=== PATIENT | male | born 1995 | race Caucasian/White ===

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

== ENCOUNTER 2017-03-13 00:12 | Emergency (ER) | payer BC ==
[2016-12-14 12:14] VITALS: BMI 20.3
[~2017-03-13 00:12] MED LIST changes: +PROTONIX40 MG PO
== END 2017-03-13 01:00 | disposition home or self-care (01) ==
LOC: D.ER 00:12
DX: R10.9 Unspecified abdominal pain (principal); K52.9 Noninfective gastroenteritis and colitis, unspecified; F41.9 Anxiety disorder, unspecified; J45.909 Unspecified asthma, uncomplicated; E87.6 Hypokalemia

== ENCOUNTER 2017-03-14 19:42 | Emergency (ER) | payer BC ==
[2016-12-14 12:14] VITALS: BMI 20.3
[2017-03-14 23:42] LABS: ALBUMIN 4.5 g/dL (3.4-5.0); ALT (SGPT) 76 U/L (10-68); BILIRUBIN - TOTAL 0.84 mg/dL (0.2-1.3); CALC OSMOLALITY 276 mosm/kg (275-300); CALCIUM 9.6 mg/dL (8.5-10.1); CARBON DIOXIDE 28.8 mmol/L (21.0-32.0); CHLORIDE - SERUM 99 mmol/L (98-107); CREATININE - SERUM 0.6 mg/dL (0.6-1.3); GLUCOSE 87 mg/dL (74-106); PROTEIN - SERUM 8.3 g/dL (6.4-8.2); SODIUM 138 mmol/L (136-145); UREA NITROGEN 19 mg/dL (7-18); eGFR NON AFRICAN AMERICAN > 90 mL/min (90-120)
[2017-03-14 23:43] LABS: ALKALINE PHOSPHATASE 59 U/L (46-116)
[2017-03-14 23:46] LABS: BASOPHILS 0.1 % (0-2); EOSINOPHILS 0.1 % (0-7); HEMATOCRIT 48.9 % (42.0-54.0); HEMOGLOBIN 16.8 g/dL (13.5-17.5); IMMATURE GRANULOCYTES 0.2 % (0-5); LYMPHOCYTES 11.6 % (15-50); MCH 29.3 pg (26.0-34.0); MCHC 34.4 g/dL (31.0-37.0); MCV 85.2 fL (80.0-100.0); MEAN PLATELET VOLUME 10.2 fL (7.4-10.4); RBC 5.74 10x6/uL (4.20-6.10); RDW 13.3 % (11.5-14.5); WBC 14.8 10x3/uL (4.8-10.8)
[2017-03-14 23:50] LABS: PLATELET COUNT 330 10x3/uL (130-400)
[2017-03-15 00:15] LABS: POTASSIUM - SERUM 3.7 mmol/L (3.5-5.1)
[2017-03-15 00:40] LABS: APPEARANCE CLEAR (CLEAR); BILIRUBIN 1+ (NEGATIVE); COLOR YELLOW (YELLOW); GLUCOSE NEGATIVE (NEGATIVE); KETONE NEGATIVE (NEGATIVE); LEUKOCYTE ESTERASE NEGATIVE (NEGATIVE); NITRITE NEGATIVE (NEGATIVE); PROTEIN NEGATIVE (NEGATIVE); UROBILINOGEN NORMAL (NORMAL)
[2017-03-15 00:53] LABS: UDS - AMPHET NEGATIVE QUAL (NEGATIVE); UDS - BARB NEGATIVE QUAL (NEGATIVE); UDS - BENZO NEGATIVE QUAL (NEGATIVE); UDS - COCAINE NEGATIVE QUAL (NEGATIVE); UDS - METH NEGATIVE QUAL (NEGATIVE); UDS - OPIATE POSITIVE QUAL (NEGATIVE); UDS - PCP NEGATIVE QUAL (NEGATIVE); UDS - THC POSITIVE QUAL (NEGATIVE)
== END 2017-03-15 01:53 | disposition home or self-care (01) ==
LOC: D.ER 19:42
PROVIDERS: Emergency Medicine
DX: R11.10 Vomiting, unspecified (principal); F12.188 Cannabis abuse with other cannabis-induced disorder; F41.9 Anxiety disorder, unspecified; J45.909 Unspecified asthma, uncomplicated; E87.6 Hypokalemia

== ENCOUNTER 2017-03-17 07:44 | Emergency (ER) | payer BC ==
[2016-12-14 12:14] VITALS: BMI 20.3
[2017-03-17 08:23] LABS: BASOPHILS 0.4 % (0-2); EOSINOPHILS 0.6 % (0-7); HEMOGLOBIN 15.5 g/dL (13.5-17.5); IMMATURE GRANULOCYTES 0.3 % (0-5); LYMPHOCYTES 16.1 % (15-50); MCH 29.4 pg (26.0-34.0); MCHC 34.4 g/dL (31.0-37.0); MCV 85.2 fL (80.0-100.0); MEAN PLATELET VOLUME 9.5 fL (7.4-10.4); MONOCYTES 8.5 % (2-11); NEUTROPHILS 74.1 % (40-80); PLATELET COUNT 319 10x3/uL (130-400); RBC 5.28 10x6/uL (4.20-6.10); RDW 13.2 % (11.5-14.5)
[2017-03-17 08:34] LABS: APPEARANCE HAZY (CLEAR); BILIRUBIN NEGATIVE (NEGATIVE); COLOR DK YELLOW (YELLOW); GLUCOSE NEGATIVE (NEGATIVE); KETONE SMALL mg/dL (NEGATIVE); LEUKOCYTE ESTERASE TRACE (NEGATIVE); NITRITE NEGATIVE (NEGATIVE); PROTEIN TRACE mg/dL (NEGATIVE); UROBILINOGEN NORMAL (NORMAL)
[2017-03-17 08:36] LABS: BACTERIA FEW /hpf (NONE SEEN); EPITHELIAL CELLS RARE /hpf (0-5); MUCUS >1+ /lpf (NONE SEEN); RED CELLS - URINE 0-5 /hpf (0-5); WHITE CELLS - URINE 0-5 /hpf (0-5)
[2017-03-17 08:45] LABS: ALBUMIN 4.2 g/dL (3.4-5.0); ALKALINE PHOSPHATASE 64 U/L (46-116); ALT (SGPT) 50 U/L (10-68); AMYLASE - SERUM 50 U/L (25-115); BILIRUBIN - TOTAL 0.83 mg/dL (0.2-1.3); CALC OSMOLALITY 277 mosm/kg (275-300); CALCIUM 9.8 mg/dL (8.5-10.1); CARBON DIOXIDE 30.9 mmol/L (21.0-32.0); CHLORIDE - SERUM 99 mmol/L (98-107); CREATININE - SERUM 1.1 mg/dL (0.6-1.3); GLUCOSE 98 mg/dL (74-106); LIPASE 148 U/L (73-393); MAGNESIUM - SERUM 2.4 mg/dL (1.8-2.4); POTASSIUM - SERUM 3.2 mmol/L (3.5-5.1); PROTEIN - SERUM 7.3 g/dL (6.4-8.2); SODIUM 139 mmol/L (136-145); UREA NITROGEN 13 mg/dL (7-18); eGFR NON AFRICAN AMERICAN > 90 mL/min (90-120)
== END 2017-03-17 10:55 | disposition home or self-care (01) ==
LOC: D.ER 07:44
PROVIDERS: Emergency Medicine
DX: R11.10 Vomiting, unspecified (principal); R10.9 Unspecified abdominal pain; E87.6 Hypokalemia; F41.9 Anxiety disorder, unspecified; J45.909 Unspecified asthma, uncomplicated; F12.988 Cannabis use, unspecified with other cannabis-induced disorder

== ENCOUNTER 2017-03-19 09:39 | Observation (INO) | payer BC ==
[~2017-03-19] VITALS: Ht 180.3 cm; Wt 80.7 kg
[2017-03-19 10:35] VITALS: BP 151/88; BMI 24.8
--- NOTE | 2017-03-19 10:39 | NUR ---
PT ADMITTED FOR N/V X 1 WEEK. UNABLE TO KEEP LIQUIDS DOWN. HAS BEEN TO THE ER FEW DAYS AGO FOR FLUIDS BUT STATES THIS DID NOT HELP. IV STARTED RIGHT AC X 1 STICK. BLOOD DRAWN AT THAT TIME. MOM AT BEDSIDE. CALL LIGHT IN REACH. KNOWS URINE SPECIMEN NEEDED.
[2017-03-19 10:48] LABS: BASOPHILS 0.3 % (0-2); EOSINOPHILS 0.3 % (0-7); HEMOGLOBIN 14.5 g/dL (13.5-17.5); IMMATURE GRANULOCYTES 0.3 % (0-5); LYMPHOCYTES 13.7 % (15-50); MCH 29.1 pg (26.0-34.0); MCHC 34.5 g/dL (31.0-37.0); MCV 84.2 fL (80.0-100.0); MEAN PLATELET VOLUME 10.1 fL (7.4-10.4); MONOCYTES 7.5 % (2-11); NEUTROPHILS 77.9 % (40-80); PLATELET COUNT 354 10x3/uL (130-400); RBC 4.99 10x6/uL (4.20-6.10); RDW 13.3 % (11.5-14.5); WBC 11.8 10x3/uL (4.8-10.8)
[2017-03-19 11:09] LABS: ALBUMIN 3.8 g/dL (3.4-5.0); ALKALINE PHOSPHATASE 58 U/L (46-116); ALT (SGPT) 40 U/L (10-68); BILIRUBIN - TOTAL 0.71 mg/dL (0.2-1.3); CALC OSMOLALITY 275 mosm/kg (275-300); CALCIUM 9.1 mg/dL (8.5-10.1); CHLORIDE - SERUM 100 mmol/L (98-107); CREATININE - SERUM 1.2 mg/dL (0.6-1.3); GLUCOSE 85 mg/dL (74-106); SODIUM 139 mmol/L (136-145); UREA NITROGEN 11 mg/dL (7-18); eGFR NON AFRICAN AMERICAN 83 mL/min (90-120)
[2017-03-19 12:31] VITALS: BP 111/58
[2017-03-19 14:52] LABS: APPEARANCE HAZY (CLEAR); BILIRUBIN NEGATIVE (NEGATIVE); COLOR YELLOW (YELLOW); GLUCOSE NEGATIVE (NEGATIVE); KETONE MODERATE mg/dL (NEGATIVE); LEUKOCYTE ESTERASE NEGATIVE (NEGATIVE); NITRITE NEGATIVE (NEGATIVE); PROTEIN NEGATIVE (NEGATIVE); UROBILINOGEN NORMAL (NORMAL)
[2017-03-19 15:16] LABS: UDS - AMPHET NEGATIVE QUAL (NEGATIVE); UDS - BARB NEGATIVE QUAL (NEGATIVE); UDS - BENZO NEGATIVE QUAL (NEGATIVE); UDS - COCAINE NEGATIVE QUAL (NEGATIVE); UDS - METH NEGATIVE QUAL (NEGATIVE); UDS - OPIATE NEGATIVE QUAL (NEGATIVE); UDS - PCP NEGATIVE QUAL (NEGATIVE); UDS - THC POSITIVE QUAL (NEGATIVE)
[2017-03-19 15:33] LABS: AMYLASE - SERUM 43 U/L (25-115); LIPASE 115 U/L (73-393)
[2017-03-19 16:13] VITALS: BP 128/68
--- NOTE | 2017-03-19 17:41 | NUR ---
PT HAS HAD NO NAUSEA THIS AFTERNOON. RECENTLY HAD SHOWER AND STATES FEELS BETTER. CONSENTS SIGNED FOR PROCEDURE IN AM. CALL LIGHT IN REACH
[2017-03-19 20:00] VITALS: BP 132/78
--- NOTE | 2017-03-19 20:40 | NUR ---
AWAKE,WATCHING TV QUIETLY. NO COMPLAINTS VOICED. CL LIGHT IN REACH.
[2017-03-20] VITALS: BP 112/50
--- NOTE | 2017-03-20 02:10 | NUR ---
RESTING QUIETLY. NO DISTRESS NOTED.
[2017-03-20 04:00] VITALS: BP 114/57
--- NOTE | 2017-03-20 05:05 | NUR ---
RESTING WITH EYES CLOSED, RESP WITH EASE, NO DISTRESS NOTED, SAFETY PRECAUTIONS IN PLACE, CL IN REACH
[2017-03-20 05:18] LABS: BASOPHILS 0.3 % (0-2); EOSINOPHILS 1.1 % (0-7); HEMATOCRIT 41.4 % (42.0-54.0); HEMOGLOBIN 13.8 g/dL (13.5-17.5); IMMATURE GRANULOCYTES 0.3 % (0-5); LYMPHOCYTES 31.6 % (15-50); MCH 28.6 pg (26.0-34.0); MCHC 33.3 g/dL (31.0-37.0); MCV 85.9 fL (80.0-100.0); MEAN PLATELET VOLUME 10.6 fL (7.4-10.4); MONOCYTES 8.5 % (2-11); NEUTROPHILS 58.2 % (40-80); PLATELET COUNT 313 10x3/uL (130-400); RBC 4.82 10x6/uL (4.20-6.10); RDW 13.3 % (11.5-14.5); WBC 11.7 10x3/uL (4.8-10.8)
[2017-03-20 05:33] LABS: ALBUMIN 3.4 g/dL (3.4-5.0); ALKALINE PHOSPHATASE 56 U/L (46-116); ALT (SGPT) 32 U/L (10-68); BILIRUBIN - TOTAL 0.63 mg/dL (0.2-1.3); CALC OSMOLALITY 278 mosm/kg (275-300); CALCIUM 8.6 mg/dL (8.5-10.1); CARBON DIOXIDE 26.9 mmol/L (21.0-32.0); CHLORIDE - SERUM 106 mmol/L (98-107); GLUCOSE 85 mg/dL (74-106); PROTEIN - SERUM 6.3 g/dL (6.4-8.2); SODIUM 141 mmol/L (136-145); UREA NITROGEN 9 mg/dL (7-18); eGFR NON AFRICAN AMERICAN > 90 mL/min (90-120)
--- NOTE | 2017-03-20 05:45 | NUR ---
AWAKE WITHOUT COMPLALINTS. CL IN REACH.
[2017-03-20 05:50] LABS: POTASSIUM - SERUM 3.5 mmol/L (3.5-5.1)
[2017-03-20 08:39] VITALS: BP 116/59
[2017-03-20 11:04] VITALS: Ht 180.3 cm; Wt 80.7 kg
[2017-03-20 12:25] VITALS: BP 118/61
--- NOTE | 2017-03-20 15:05 | NUR ---
Patient Name: EMANUEL JUDD Admission Status: Elective Accout number: [id number] Admission Date: 03-19-2017 : 1995 Admission Diagnosis: Attending: ROMINA Current LOS: 1 Anticipated DC Date: 03-21-2017 Planned Disposition: Home Primary Insurance: [employer] Discharge Planning Comments: CM MET WITH PATIENT REGARDING D/C NEEDS AND PLANS. PATIENT STATES HE LIVES WITH HIS GRANDPARENTS AND MOM (APRIL). PATIENTS MOTHER WILL BE DRIVING HIM HOME AT DISCHARGE. PATIENT HAS 5 STEPS W/RAILS TO ENTER HOME AND NO STAIRS INSIDE. PATIENT IS INDEPENDENT WITH HIS CARE AND HAS NO DME AT HOME. PATIENTS PCP IS DR. FLORES AND USES [facility] [facility]. PATIENT DENIES ANY NEEDS OR HOME HEALTH AT DISCHARGE. CM WILL CONTINUE TO FOLLOW PATIENT WITH D/C NEEDS AND PLANS. PCP DR[facility] MARK SH[facility] [address] [facility] [phone] APRIL ([facility]) [phone] Patient Care Associate: Rubi Azul Is the patient Alert and Oriented? Yes 0 * How many steps to enter\exit or inside your home? 5 W/RAILS 0 * PCP DR. FLORES 0 * Pharmacy [facility] [address] [facility] 0 * Preadmission Environment Home with Family 0 * ADLs Independent 0 * Equipment None 0 * List name and contact numbers for known caregivers / representatives who currently or will assist patient after discharge: GLOIRA JUDD ([facility]) [phone] 0 * Community resources currently utilized None 0 * Additional services required to return to the preadmission environment? Yes 0 * Can the patient safely return to the preadmission environment? Yes 0 * Has this patient been hospitalized within the prior 30 days at any hospital? No 0 Grand Total: 0
[2017-03-20 16:18] VITALS: BP 139/64
[2017-03-20 20:00] VITALS: BP 128/62
[2017-03-21] VITALS: BP 109/52
--- NOTE | 2017-03-21 02:40 | NUR ---
PT RESTING QUIETLY, EYES CLOSED. GAVE SCHEDULED NAUSEA MEDICINE. PT C/O SLIGHT NAUSEA EARLIER IN SHIFT AFTER EATING 2 PUDDING CUPS. WILL CONTINUE TO MONITOR.
[2017-03-21 04:00] VITALS: BP 106/60
--- NOTE | 2017-03-21 08:10 | NUR ---
PT SEEN AND ASSESSED. NO COMPLAINTS AT PRESENT. STATES NO NAUSEA LAST NIGHT. BOWELS MOVED DURING THE NIGHT. HOPING FOR DISCHARGE THIS AM. CALL LIGHT IN REACH
[2017-03-21 08:20] VITALS: BP 110/56
--- NOTE | 2017-03-21 08:35 | NUR ---
CM REASSESSMENT NOTE: PATIENT IS DISCHARGING HOME TODAY WITH FAMILY-NO NEEDS FOR DISCHARGE
--- NOTE | 2017-03-21 13:53 | NUR ---
PT UP TO SHOWER. IV SALINE LOCKED. NO COMPLAINTS OF PAIN OR NAUSEA. CALL LIGHT IN REACH
[2017-03-21] MEDS ORDERED: LIBRAX CAPSULE1 CAP PO (14:03)
--- NOTE | 2017-03-21 15:30 | NUR ---
DISCHARGE INSTRUCTIONS REVIEWED WITH PATIENT AND MOM. SALINE LOCK REMOVED. TO FRONT DOOR WITH BELONGINGS
== END 2017-03-21 15:31 | disposition home or self-care (01) ==
LOC: OBSVTIME 09:39 → D.MS 09:39
PROVIDERS: Internal Medicine Gastroenterology; ADMIT Family Medicine
DX: K22.70 Barrett's esophagus without dysplasia (principal); K29.70 Gastritis, unspecified, without bleeding; J45.909 Unspecified asthma, uncomplicated; Z87.891 Personal history of nicotine dependence

== ENCOUNTER 2017-04-06 11:12 | Emergency (ER) | payer BC ==
[2017-03-20 11:04] VITALS: BMI 24.8
[~2017-04-06 11:12] MED LIST changes: +LIBRAX CAPSULE1 CAP PO
== END 2017-04-06 13:30 | disposition home or self-care (01) ==
LOC: D.ER 11:12
DX: K29.00 Acute gastritis without bleeding (principal); K21.9 Gastro-esophageal reflux disease without esophagitis; R11.10 Vomiting, unspecified; E86.0 Dehydration; F17.200 Nicotine dependence, unspecified, uncomplicated

== ENCOUNTER 2017-04-07 12:44 | Emergency (ER) | payer BC ==
[2017-03-20 11:04] VITALS: BMI 24.8
[2017-04-07 16:18] LABS: BASOPHILS 0.2 % (0-2); EOSINOPHILS 0.3 % (0-7); HEMATOCRIT 43.2 % (42.0-54.0); HEMOGLOBIN 15.3 g/dL (13.5-17.5); IMMATURE GRANULOCYTES 0.2 % (0-5); MCH 29.3 pg (26.0-34.0); MCHC 35.4 g/dL (31.0-37.0); MCV 82.6 fL (80.0-100.0); MEAN PLATELET VOLUME 9.9 fL (7.4-10.4); MONOCYTES 6.8 % (2-11); NEUTROPHILS 77.5 % (40-80); PLATELET COUNT 315 10x3/uL (130-400); RBC 5.23 10x6/uL (4.20-6.10); RDW 13.7 % (11.5-14.5); WBC 11.3 10x3/uL (4.8-10.8)
[2017-04-07 16:27] LABS: ALBUMIN 4.4 g/dL (3.4-5.0); ALKALINE PHOSPHATASE 64 U/L (46-116); ALT (SGPT) 43 U/L (10-68); BILIRUBIN - TOTAL 0.68 mg/dL (0.2-1.3); CALC OSMOLALITY 271 mosm/kg (275-300); CALCIUM 9.8 mg/dL (8.5-10.1); CARBON DIOXIDE 26.9 mmol/L (21.0-32.0); CHLORIDE - SERUM 99 mmol/L (98-107); CREATININE - SERUM 1.1 mg/dL (0.6-1.3); GLUCOSE 98 mg/dL (74-106); POTASSIUM - SERUM 3.1 mmol/L (3.5-5.1); PROTEIN - SERUM 7.3 g/dL (6.4-8.2); SODIUM 137 mmol/L (136-145); UREA NITROGEN 7 mg/dL (7-18); eGFR NON AFRICAN AMERICAN > 90 mL/min (90-120)
[2017-04-07 17:38] LABS: APPEARANCE HAZY (CLEAR); BILIRUBIN NEGATIVE (NEGATIVE); COLOR YELLOW (YELLOW); GLUCOSE NEGATIVE (NEGATIVE); KETONE MODERATE mg/dL (NEGATIVE); LEUKOCYTE ESTERASE NEGATIVE (NEGATIVE); NITRITE NEGATIVE (NEGATIVE); PROTEIN NEGATIVE (NEGATIVE); UROBILINOGEN NORMAL (NORMAL)
== END 2017-04-07 18:50 | disposition home or self-care (01) ==
LOC: D.ER 12:44
PROVIDERS: Physician Assistant Medical
DX: A04.9 Bacterial intestinal infection, unspecified (principal); K21.9 Gastro-esophageal reflux disease without esophagitis; R11.10 Vomiting, unspecified; E86.0 Dehydration; J45.909 Unspecified asthma, uncomplicated; F41.9 Anxiety disorder, unspecified; E87.6 Hypokalemia; F17.200 Nicotine dependence, unspecified, uncomplicated

== ENCOUNTER 2017-09-07 18:54 | Emergency (ER) | payer BC ==
[2017-03-20 11:04] VITALS: BMI 24.8
[2017-09-07 19:16] LABS: BASOPHILS 0.1 % (0-2); EOSINOPHILS 0.1 % (0-7); HEMATOCRIT 48.7 % (42.0-54.0); HEMOGLOBIN 16.9 g/dL (13.5-17.5); IMMATURE GRANULOCYTES 0.2 % (0-5); LYMPHOCYTES 17.4 % (15-50); MCH 30.8 pg (26.0-34.0); MCHC 34.7 g/dL (31.0-37.0); MCV 88.7 fL (80.0-100.0); MEAN PLATELET VOLUME 9.5 fL (7.4-10.4); MONOCYTES 6.7 % (2-11); NEUTROPHILS 75.5 % (40-80); PLATELET COUNT 344 10x3/uL (130-400); RBC 5.49 10x6/uL (4.20-6.10); RDW 13.5 % (11.5-14.5); WBC 13.4 10x3/uL (4.8-10.8)
[2017-09-07 19:34] LABS: ALBUMIN 4.6 g/dL (3.4-5.0); ALKALINE PHOSPHATASE 53 U/L (46-116); ALT (SGPT) 30 U/L (10-68); CALC OSMOLALITY 279 mosm/kg (275-300); CALCIUM 10.5 mg/dL (8.5-10.1); CARBON DIOXIDE 30.8 mmol/L (21.0-32.0); CHLORIDE - SERUM 97 mmol/L (98-107); CREATININE - SERUM 1.1 mg/dL (0.6-1.3); GLUCOSE 109 mg/dL (74-106); POTASSIUM - SERUM 3.1 mmol/L (3.5-5.1); PROTEIN - SERUM 8.6 g/dL (6.4-8.2); SODIUM 140 mmol/L (136-145); UREA NITROGEN 13 mg/dL (7-18); eGFR NON AFRICAN AMERICAN > 90 mL/min (90-120)
== END 2017-09-07 22:25 | disposition home or self-care (01) ==
LOC: D.ER 18:54
PROVIDERS: Emergency Medicine
DX: E87.6 Hypokalemia (principal); R11.10 Vomiting, unspecified; K59.00 Constipation, unspecified

== ENCOUNTER 2017-09-21 13:20 | Emergency (ER) | payer BC ==
[2017-03-20 11:04] VITALS: BMI 24.8
== END 2017-09-21 15:15 | disposition home or self-care (01) ==
LOC: D.ER 13:20
DX: K21.9 Gastro-esophageal reflux disease without esophagitis (principal)

== ENCOUNTER 2018-02-12 10:43 | Emergency (ER) | payer BC ==
[2017-03-20 11:04] VITALS: BMI 24.8
[2018-02-12 11:31] LABS: BASOPHILS 0.1 % (0-2); EOSINOPHILS 0 % (0-7); HEMATOCRIT 45.5 % (42.0-54.0); HEMOGLOBIN 15.9 g/dL (13.5-17.5); IMMATURE GRANULOCYTES 0.3 % (0-5); LYMPHOCYTES 8.6 % (15-50); MCH 31.3 pg (26.0-34.0); MCHC 34.9 g/dL (31.0-37.0); MCV 89.6 fL (80.0-100.0); MEAN PLATELET VOLUME 10.1 fL (7.4-10.4); MONOCYTES 4.5 % (2-11); NEUTROPHILS 86.5 % (40-80); PLATELET COUNT 259 10x3/uL (130-400); RBC 5.08 10x6/uL (4.20-6.10); RDW 13.2 % (11.5-14.5); WBC 14.2 10x3/uL (4.8-10.8)
[2018-02-12 11:38] LABS: ALBUMIN 4.7 g/dL (3.4-5.0); ALKALINE PHOSPHATASE 64 U/L (46-116); ALT (SGPT) 34 U/L (10-68); AMYLASE - SERUM 53 U/L (25-115); BILIRUBIN - TOTAL 0.84 mg/dL (0.2-1.3); CALC OSMOLALITY 278 mosm/kg (275-300); CALCIUM 10.4 mg/dL (8.5-10.1); CARBON DIOXIDE 25.1 mmol/L (21.0-32.0); CHLORIDE - SERUM 100 mmol/L (98-107); GLUCOSE 114 mg/dL (74-106); LIPASE 73 U/L (73-393); POTASSIUM - SERUM 3.9 mmol/L (3.5-5.1); PROTEIN - SERUM 8.7 g/dL (6.4-8.2); SODIUM 139 mmol/L (136-145); UREA NITROGEN 13 mg/dL (7-18); eGFR NON AFRICAN AMERICAN > 90 mL/min (90-120)
[2018-02-12 12:33] LABS: APPEARANCE HAZY (CLEAR); BILIRUBIN NEGATIVE (NEGATIVE); COLOR DK YELLOW (YELLOW); GLUCOSE NEGATIVE (NEGATIVE); KETONE LARGE mg/dL (NEGATIVE); NITRITE NEGATIVE (NEGATIVE); PROTEIN TRACE mg/dL (NEGATIVE); SPECIFIC GRAVITY 1.015 (1.005-1.020); UROBILINOGEN NORMAL (NORMAL)
[2018-02-12 12:38] LABS: BACTERIA FEW /hpf (NONE SEEN); EPITHELIAL CELLS 0-5 /hpf (0-5); MUCUS <1+ /lpf (NONE SEEN); RED CELLS - URINE 0-5 /hpf (0-5); WHITE CELLS - URINE OCC /hpf (0-5)
== END 2018-02-12 17:00 | disposition home or self-care (01) ==
LOC: D.ER 10:43
PROVIDERS: Family Medicine
DX: R10.13 Epigastric pain (principal); R11.2 Nausea with vomiting, unspecified

== ENCOUNTER 2018-02-14 09:53 | Emergency (ER) | payer BC ==
[2017-03-20 11:04] VITALS: BMI 24.8
[2018-02-14 10:33] LABS: BASOPHILS 0.2 % (0-2); EOSINOPHILS 0.5 % (0-7); HEMATOCRIT 46.3 % (42.0-54.0); HEMOGLOBIN 16.5 g/dL (13.5-17.5); LYMPHOCYTES 26.3 % (15-50); MCH 31.1 pg (26.0-34.0); MCHC 35.6 g/dL (31.0-37.0); MCV 87.2 fL (80.0-100.0); MEAN PLATELET VOLUME 10.3 fL (7.4-10.4); MONOCYTES 8.6 % (2-11); NEUTROPHILS 64.4 % (40-80); PLATELET COUNT 224 10x3/uL (130-400); RBC 5.31 10x6/uL (4.20-6.10); RDW 13.3 % (11.5-14.5); WBC 8.4 10x3/uL (4.8-10.8)
[2018-02-14 10:34] LABS: APPEARANCE CLEAR (CLEAR); BILIRUBIN 2+ (NEGATIVE); COLOR DK YELLOW (YELLOW); GLUCOSE NEGATIVE (NEGATIVE); KETONE LARGE mg/dL (NEGATIVE); NITRITE NEGATIVE (NEGATIVE); PROTEIN NEGATIVE (NEGATIVE)
[2018-02-14 10:35] LABS: WHITE CELLS - URINE 0-5 /hpf (0-5)
[2018-02-14 10:36] LABS: BACTERIA FEW /hpf (NONE SEEN); RED CELLS - URINE OCC /hpf (0-5)
[2018-02-14 10:37] LABS: MUCUS <1+ /lpf (NONE SEEN)
[2018-02-14 10:54] LABS: ALBUMIN 4.1 g/dL (3.4-5.0); ALKALINE PHOSPHATASE 56 U/L (46-116); ALT (SGPT) 30 U/L (10-68); BILIRUBIN - TOTAL 1.29 mg/dL (0.2-1.3); CALC OSMOLALITY 273 mosm/kg (275-300); CALCIUM 9.6 mg/dL (8.5-10.1); CARBON DIOXIDE 26.6 mmol/L (21.0-32.0); CHLORIDE - SERUM 99 mmol/L (98-107); CREATININE - SERUM 1.1 mg/dL (0.6-1.3); GLUCOSE 105 mg/dL (74-106); LIPASE 83 U/L (73-393); PROTEIN - SERUM 7.5 g/dL (6.4-8.2); SODIUM 137 mmol/L (136-145); UREA NITROGEN 12 mg/dL (7-18); eGFR NON AFRICAN AMERICAN > 90 mL/min (90-120)
[2018-02-14 10:56] LABS: POTASSIUM - SERUM 2.6 mmol/L (3.5-5.1)
[2018-02-14 12:18] LABS: UDS - AMPHET NEGATIVE QUAL (NEGATIVE); UDS - BARB NEGATIVE QUAL (NEGATIVE); UDS - BENZO POSITIVE QUAL (NEGATIVE); UDS - COCAINE NEGATIVE QUAL (NEGATIVE); UDS - OPIATE NEGATIVE QUAL (NEGATIVE); UDS - PCP NEGATIVE QUAL (NEGATIVE); UDS - THC POSITIVE QUAL (NEGATIVE)
== END 2018-02-14 12:44 | disposition home or self-care (01) ==
LOC: D.ER 09:53
PROVIDERS: Family Medicine
DX: R11.10 Vomiting, unspecified (principal)

== ENCOUNTER 2018-08-19 15:14 | Emergency (ER) | payer BC ==
[~2018-08-19] VITALS: Ht 180.3 cm; Wt 77.3 kg
[2018-08-19 15:21] VITALS: Ht 180.3 cm; Wt 77.3 kg
[2018-08-19 16:01] LABS: BASOPHILS 0.1 % (0-2); EOSINOPHILS 0.3 % (0-7); HEMATOCRIT 45.8 % (42.0-54.0); HEMOGLOBIN 17.4 g/dL (13.5-17.5); IMMATURE GRANULOCYTES 0.2 % (0-5); LYMPHOCYTES 17.3 % (15-50); MCH 32.3 pg (26.0-34.0); MCV 85.1 fL (80.0-100.0); MEAN PLATELET VOLUME 9.6 fL (7.4-10.4); MONOCYTES 10.5 % (2-11); NEUTROPHILS 71.6 % (40-80); PLATELET COUNT 274 10x3/uL (130-400); RBC 5.38 10x6/uL (4.20-6.10); RDW 12.6 % (11.5-14.5); WBC 9.1 10x3/uL (4.8-10.8)
[2018-08-19 16:19] LABS: ALBUMIN 5.1 g/dL (3.4-5.0); ALKALINE PHOSPHATASE 53 U/L (46-116); ALT (SGPT) 28 U/L (10-68); BILIRUBIN - TOTAL 1.59 mg/dL (0.2-1.3); CALC OSMOLALITY 265 mosm/kg (275-300); CALCIUM 10.5 mg/dL (8.5-10.1); CARBON DIOXIDE 28.8 mmol/L (21.0-32.0); CHLORIDE - SERUM 92 mmol/L (98-107); GLUCOSE 101 mg/dL (74-106); PROTEIN - SERUM 8.5 g/dL (6.4-8.2); SODIUM 133 mmol/L (136-145); UREA NITROGEN 12 mg/dL (7-18); eGFR NON AFRICAN AMERICAN > 90 mL/min (90-120)
[2018-08-19 16:55] LABS: APPEARANCE CLEAR (CLEAR); COLOR DK YELLOW (YELLOW); SPECIFIC GRAVITY 1.015 (1.005-1.020)
[2018-08-19 16:56] LABS: BILIRUBIN NEGATIVE (NEGATIVE); GLUCOSE NEGATIVE (NEGATIVE); KETONE MODERATE mg/dL (NEGATIVE); NITRITE NEGATIVE (NEGATIVE); PROTEIN NEGATIVE (NEGATIVE)
[2018-08-19] MEDS ORDERED: K-DUR20 MEQ PO (18:04)
[2018-08-19] MEDS ORDERED: ZOFRAN ODT4 MG/UDTAB PO (18:05)
[2018-08-19 20:27] VITALS: BP 121/61
== END 2018-08-19 20:04 | disposition home or self-care (01) ==
LOC: D.ER 15:14
PROVIDERS: Emergency Medicine
DX: R11.10 Vomiting, unspecified (principal); R10.9 Unspecified abdominal pain; E87.6 Hypokalemia

== ENCOUNTER 2018-08-21 10:19 | Observation (INO) | payer BC ==
[~2018-08-21] VITALS: Ht 180.3 cm; Wt 55.3 kg
[~2018-08-21 10:19] MED LIST changes: +K-DUR20 MEQ PO; +ZOFRAN ODT4 MG/UDTAB PO
[2018-08-21 12:07] VITALS: BP 138/78
[2018-08-21 13:41] LABS: BASOPHILS 0.1 % (0-2); EOSINOPHILS 0.1 % (0-7); HEMATOCRIT 40.9 % (42.0-54.0); HEMOGLOBIN 15.1 g/dL (13.5-17.5); IMMATURE GRANULOCYTES 0.2 % (0-5); LYMPHOCYTES 8.1 % (15-50); MCH 31.3 pg (26.0-34.0); MCHC 36.9 g/dL (31.0-37.0); MCV 84.9 fL (80.0-100.0); MEAN PLATELET VOLUME 10.3 fL (7.4-10.4); MONOCYTES 3.3 % (2-11); NEUTROPHILS 88.2 % (40-80); PLATELET COUNT 247 10x3/uL (130-400); RBC 4.82 10x6/uL (4.20-6.10); RDW 12.5 % (11.5-14.5); WBC 11.2 10x3/uL (4.8-10.8)
[2018-08-21 14:00] LABS: ALBUMIN 4.2 g/dL (3.4-5.0); ALKALINE PHOSPHATASE 45 U/L (46-116); ALT (SGPT) 23 U/L (10-68); BILIRUBIN - TOTAL 1.12 mg/dL (0.2-1.3); CALC OSMOLALITY 265 mosm/kg (275-300); CHLORIDE - SERUM 95 mmol/L (98-107); GLUCOSE 113 mg/dL (74-106); POTASSIUM - SERUM 3.1 mmol/L (3.5-5.1); PROTEIN - SERUM 7.3 g/dL (6.4-8.2); SODIUM 133 mmol/L (136-145); UREA NITROGEN 11 mg/dL (7-18); eGFR NON AFRICAN AMERICAN > 90 mL/min (90-120)
[2018-08-21 15:21] LABS: UDS - AMPHET NEGATIVE QUAL (NEGATIVE); UDS - BARB NEGATIVE QUAL (NEGATIVE); UDS - BENZO POSITIVE QUAL (NEGATIVE); UDS - COCAINE NEGATIVE QUAL (NEGATIVE); UDS - OPIATE NEGATIVE QUAL (NEGATIVE); UDS - PCP NEGATIVE QUAL (NEGATIVE); UDS - THC POSITIVE QUAL (NEGATIVE)
[2018-08-21 15:26] LABS: APPEARANCE HAZY (CLEAR); BILIRUBIN 1+ (NEGATIVE); COLOR DK YELLOW (YELLOW); GLUCOSE NEGATIVE (NEGATIVE); KETONE LARGE mg/dL (NEGATIVE); NITRITE NEGATIVE (NEGATIVE); PROTEIN NEGATIVE (NEGATIVE); SPECIFIC GRAVITY 1.005 (1.005-1.020)
[2018-08-21 15:28] LABS: WHITE CELLS - URINE 0-5 /hpf (0-5)
[2018-08-21 15:29] LABS: AMORPHOUS SEDIMENT >1+ /lpf (NONE SEEN); BACTERIA MANY /hpf (NONE SEEN)
[2018-08-21 19:52] VITALS: BP 138/78; BMI 17.0
[2018-08-21 20:00] VITALS: BP 122/75
[2018-08-22] VITALS: BP 119/61
[2018-08-22 04:00] VITALS: BP 106/67
[2018-08-22 05:46] LABS: BASOPHILS 0.2 % (0-2); EOSINOPHILS 0.7 % (0-7); HEMATOCRIT 40.4 % (42.0-54.0); HEMOGLOBIN 14.5 g/dL (13.5-17.5); IMMATURE GRANULOCYTES 0.3 % (0-5); LYMPHOCYTES 28.8 % (15-50); MCH 31.2 pg (26.0-34.0); MCHC 35.9 g/dL (31.0-37.0); PLATELET COUNT 257 10x3/uL (130-400); RBC 4.65 10x6/uL (4.20-6.10); RDW 12.8 % (11.5-14.5); WBC 10.7 10x3/uL (4.8-10.8)
[2018-08-22 05:53] LABS: MCV 86.9 fL (80.0-100.0)
[2018-08-22 06:24] LABS: ALBUMIN 3.9 g/dL (3.4-5.0); ALKALINE PHOSPHATASE 43 U/L (46-116); ALT (SGPT) 23 U/L (10-68); AMYLASE - SERUM 40 U/L (25-115); BILIRUBIN - TOTAL 1.18 mg/dL (0.2-1.3); CALC OSMOLALITY 265 mosm/kg (275-300); CALCIUM 8.8 mg/dL (8.5-10.1); CARBON DIOXIDE 23.6 mmol/L (21.0-32.0); CHLORIDE - SERUM 98 mmol/L (98-107); GLUCOSE 73 mg/dL (74-106); LIPASE 126 U/L (73-393); POTASSIUM - SERUM 3.3 mmol/L (3.5-5.1); PROTEIN - SERUM 6.9 g/dL (6.4-8.2); SODIUM 134 mmol/L (136-145); UREA NITROGEN 9 mg/dL (7-18); eGFR NON AFRICAN AMERICAN > 90 mL/min (90-120)
[2018-08-22 08:28] VITALS: BP 99/57
[2018-08-22 10:56] VITALS: Ht 180.3 cm; Wt 55.3 kg
[2018-08-22 12:09] VITALS: BP 103/64
[2018-08-22 15:31] VITALS: BP 120/59
[2018-08-22 19:58] VITALS: BP 146/86
[2018-08-23 04:00] VITALS: BP 127/55
[2018-08-23 06:11] LABS: CALCIUM 8.4 mg/dL (8.5-10.1); CARBON DIOXIDE 22.1 mmol/L (21.0-32.0); CHLORIDE - SERUM 101 mmol/L (98-107); CREATININE - SERUM 0.8 mg/dL (0.6-1.3); MAGNESIUM - SERUM 1.8 mg/dL (1.8-2.4); SODIUM 135 mmol/L (136-145); UREA NITROGEN 10 mg/dL (7-18); eGFR NON AFRICAN AMERICAN > 90 mL/min (90-120)
[2018-08-23 06:16] LABS: CALC OSMOLALITY 266 mosm/kg (275-300); GLUCOSE 57 mg/dL (74-106); POTASSIUM - SERUM 3.9 mmol/L (3.5-5.1)
[2018-08-23 09:07] VITALS: BP 117/69
[2018-08-23 15:26] VITALS: BP 128/72
[2018-08-23] MEDS ORDERED: PROTONIX40 MG PO (17:34)
== END 2018-08-23 18:36 | disposition home or self-care (01) ==
LOC: D.SDCHOLD 10:19 → D.MS 10:19 → OBSVTIME 10:21 → D.MS 11:40
PROVIDERS: Family Medicine; Internal Medicine Gastroenterology
DX: K22.70 Barrett's esophagus without dysplasia (principal); K44.9 Diaphragmatic hernia without obstruction or gangrene; K29.70 Gastritis, unspecified, without bleeding; E87.6 Hypokalemia; E86.0 Dehydration; K21.9 Gastro-esophageal reflux disease without esophagitis

== ENCOUNTER 2020-03-25 03:22 | Emergency (ER) | payer OTHER ==
[~2020-03-25] VITALS: Ht 180.3 cm; Wt 77.1 kg
[~2020-03-25 03:22] MED LIST changes: +CARAFATE1 G/10 ML PO; +REGLAN5 MG PO
[2020-03-25 03:30] VITALS: Ht 180.3 cm; Wt 77.1 kg
[2020-03-25 03:48] LABS: BASOPHILS 0.4 % (0-2); EOSINOPHILS 2.4 % (0-7); HEMATOCRIT 47.9 % (42.0-54.0); HEMOGLOBIN 16.4 g/dL (13.5-17.5); IMMATURE GRANULOCYTES 0.3 % (0-5); LYMPHOCYTES 35.8 % (15-50); MCH 32.2 pg (26.0-34.0); MCHC 34.2 g/dL (31.0-37.0); MCV 94.1 fL (80.0-100.0); MEAN PLATELET VOLUME 9.6 fL (7.4-10.4); MONOCYTES 8.3 % (2-11); NEUTROPHILS 52.8 % (40-80); PLATELET COUNT 347 10x3/uL (130-400); RBC 5.09 10x6/uL (4.20-6.10); RDW 13.2 % (11.5-14.5); WBC 9.9 10x3/uL (4.8-10.8)
[2020-03-25 03:58] LABS: CALC OSMOLALITY 284 mosm/kg (275-300); CALCIUM 9.6 mg/dL (8.5-10.1); CARBON DIOXIDE 25.2 mmol/L (21.0-32.0); CHLORIDE - SERUM 104 mmol/L (98-107); GLUCOSE 78 mg/dL (74-106); POTASSIUM - SERUM 3.3 mmol/L (3.5-5.1); SODIUM 144 mmol/L (136-145); UREA NITROGEN 10 mg/dL (7-18); eGFR NON AFRICAN AMERICAN > 90 mL/min (90-120)
[2020-03-25 04:04] LABS: ALBUMIN 4.7 g/dL (3.4-5.0); ALKALINE PHOSPHATASE 97 U/L (30-120); ALT (SGPT) 43 U/L (10-68); PROTEIN - SERUM 8.6 g/dL (6.4-8.2)
[2020-03-25 04:07] LABS: APTT 23.3 SECONDS (22.8-39.4); INR 0.81 (0.85-1.17); PROTIME 11.2 SECONDS (11.6-15.0)
[2020-03-25 05:53] LABS: BILIRUBIN NEGATIVE (NEGATIVE); GLUCOSE NEGATIVE (NEGATIVE); KETONE NEGATIVE (NEGATIVE); NITRITE NEGATIVE (NEGATIVE); SPECIFIC GRAVITY 1.025 (1.005-1.020); UROBILINOGEN NORMAL (NORMAL)
[2020-03-25] MEDS ORDERED: CYCLOBENZAPRINE10 MG PO ×2 (05:59→06:02)
[2020-03-25] MEDS ORDERED: IBUPROFEN800 MG PO ×2 (05:59→06:02)
[2020-03-25] MEDS ORDERED: HYDROCODON-ACE1 EA10 PO ×2 (05:59→06:02)
[2020-03-25 06:29] VITALS: BP 131/68
== END 2020-03-25 06:29 | disposition home or self-care (01) ==
LOC: D.ER 03:22
PROVIDERS: Family Medicine
DX: S30.0XXA Contusion of lower back and pelvis, initial encounter (principal); S62.112A Displaced fracture of triquetrum [cuneiform] bone, left wrist, initial encounter for closed fracture; M79.18 Myalgia, other site; M79.602 Pain in left arm; M79.604 Pain in right leg; M79.601 Pain in right arm; V20.0XXA Motorcycle driver injured in collision with pedestrian or animal in nontraffic accident, initial encounter; Y93.9 Activity, unspecified; Y92.9 Unspecified place or not applicable; J45.909 Unspecified asthma, uncomplicated; K21.9 Gastro-esophageal reflux disease without esophagitis

== ENCOUNTER 2020-05-20 09:10 | Inpatient (IN) | payer OTHER ==
[~2020-05-20] VITALS: Ht 180.3 cm; Wt 72.6 kg
[~2020-05-20 09:10] MED LIST changes: +CYCLOBENZAPRINE10 MG PO; +HYDROCODON-ACE1 EA10 PO; +IBUPROFEN800 MG PO
[2020-05-20 09:36] LABS: BASOPHILS 0.2 % (0-2); EOSINOPHILS 0.6 % (0-7); HEMATOCRIT 46.1 % (42.0-54.0); HEMOGLOBIN 16.9 g/dL (13.5-17.5); IMMATURE GRANULOCYTES 0.3 % (0-5); LYMPHOCYTES 18.3 % (15-50); MCH 31.6 pg (26.0-34.0); MCHC 36.7 g/dL (31.0-37.0); MCV 86.2 fL (80.0-100.0); MEAN PLATELET VOLUME 9.3 fL (7.4-10.4); MONOCYTES 7.8 % (2-11); NEUTROPHILS 72.8 % (40-80); RBC 5.35 10x6/uL (4.20-6.10); RDW 12.9 % (11.5-14.5)
[2020-05-20 09:43] LABS: PLATELET COUNT 424 10x3/uL (130-400)
[2020-05-20 09:45] LABS: NITRITE NEGATIVE (NEGATIVE)
[2020-05-20 09:46] LABS: BILIRUBIN NEGATIVE (NEGATIVE); GLUCOSE NEGATIVE (NEGATIVE); KETONE MODERATE mg/dL (NEGATIVE); UROBILINOGEN NORMAL (NORMAL)
[2020-05-20 09:48] LABS: BACTERIA FEW /hpf (NEGATIVE); RED CELLS - URINE 0-5 /hpf (0-5); WHITE CELLS - URINE 0-5 /hpf (NEGATIVE)
[2020-05-20 09:56] LABS: ALKALINE PHOSPHATASE 82 U/L (30-120); ALT (SGPT) 63 U/L (10-68); BILIRUBIN - TOTAL 0.94 mg/dL (0.2-1.3); CALCIUM 10.8 mg/dL (8.5-10.1); CARBON DIOXIDE 33.1 mmol/L (21.0-32.0); CHLORIDE - SERUM 93 mmol/L (98-107); CREATININE - SERUM 1.2 mg/dL (0.6-1.3); PROTEIN - SERUM 8.7 g/dL (6.4-8.2); SODIUM 134 mmol/L (136-145); UREA NITROGEN 11 mg/dL (7-18); eGFR NON AFRICAN AMERICAN 80 mL/min (90-120)
[2020-05-20 09:58] LABS: CALC OSMOLALITY 268 mosm/kg (275-300); GLUCOSE 139 mg/dL (74-106)
[2020-05-20 09:59] LABS: POTASSIUM - SERUM 2.7 mmol/L (3.5-5.1)
[2020-05-20 10:04] LABS: AMYLASE - SERUM 38 U/L (25-115); LIPASE 96 U/L (73-393)
--- NOTE | 2020-05-20 10:15 | NUR ---
RN PLACING PT ON BOOKKEEPING MACHINE MECHANIC AT THIS TIME. FENTANYL 25MCG PATCH NOTED TO PT CHEST. PT REPORTS PATCH WAS PROVIDED BY FAMILY MEMBER 2 DAYS AGO FOR ABD PAIN. EDP NOTIFIED.
--- NOTE | 2020-05-20 11:05 | NUR ---
PT LEFT ED VIA WC FOR CT
--- NOTE | 2020-05-20 11:22 | NUR ---
PT RETURNED TO ED VIA WC
--- NOTE | 2020-05-20 12:32 | NUR ---
PT AMBULATED TO RESTROOM WITH A STEADY GAIT. PT DENIES NEEDS AT THIS TIME.
[2020-05-20 14:15] VITALS: BP 141/77
--- NOTE | 2020-05-20 14:30 | NUR ---
PT RESTING IN BED, REQUESTING MORPHINE, EXPLAINED TO PT THAT HE WAS NOTED TO BE WEARING A FENTENYL PATCH SO NO OTHER PAIN MEDS WERE ORDERED, STATES THAT PAIN IS A 9,
[2020-05-20 20:00] VITALS: BP 128/76
--- NOTE | 2020-05-20 20:12 | NUR ---
RESTING QUEITLY WITH NO DISTRESS NOTED. IV TO RAC INTACT WITHOUT REDNESS OR EDEMA NOTED. NO COMPLAINTS OF N/V. CL IN REACH
[2020-05-21] VITALS: BP 121/72
[2020-05-21 00:51] LABS: UDS - AMPHET NEGATIVE QUAL (NEGATIVE); UDS - BARB NEGATIVE QUAL (NEGATIVE); UDS - BENZO POSITIVE QUAL (NEGATIVE); UDS - COCAINE NEGATIVE QUAL (NEGATIVE); UDS - OPIATE POSITIVE QUAL (NEGATIVE); UDS - PCP NEGATIVE QUAL (NEGATIVE); UDS - THC POSITIVE QUAL (NEGATIVE)
[2020-05-21 04:00] VITALS: BP 116/75
--- NOTE | 2020-05-21 04:25 | NUR ---
I have reviewed this patient and I concur with the Shift Assessment completed by the Licensed Practical Nurse today this shift.
--- NOTE | 2020-05-21 08:16 | NUR ---
RESTING IN BED, NO DISTRESS NOTED, IV INFUSING, NO EMESIS REPORT FROM MANAGER OF COMPLIANCE, CONT TO MONITOR PAIN AND NAUSEA
[2020-05-21 08:34] LABS: ALKALINE PHOSPHATASE 57 U/L (30-120); BILIRUBIN - TOTAL 0.74 mg/dL (0.2-1.3); CALCIUM 8.4 mg/dL (8.5-10.1); CARBON DIOXIDE 34.2 mmol/L (21.0-32.0); CHLORIDE - SERUM 99 mmol/L (98-107); CREATININE - SERUM 0.9 mg/dL (0.6-1.3); MAGNESIUM - SERUM 1.8 mg/dL (1.8-2.4); PHOSPHOROUS 1.8 mg/dL (2.5-4.9); SODIUM 135 mmol/L (136-145); eGFR NON AFRICAN AMERICAN > 90 mL/min (90-120)
[2020-05-21 08:40] LABS: ALBUMIN 3.7 g/dL (3.4-5.0); ALT (SGPT) 44 U/L (10-68); CALC OSMOLALITY 266 mosm/kg (275-300); GLUCOSE 84 mg/dL (74-106); PROTEIN - SERUM 6.3 g/dL (6.4-8.2); UREA NITROGEN 6 mg/dL (7-18)
[2020-05-21 08:41] LABS: POTASSIUM - SERUM 2.8 mmol/L (3.5-5.1)
[2020-05-21 08:47] LABS: BASOPHILS 0.4 % (0-2); EOSINOPHILS 1.4 % (0-7); HEMOGLOBIN 13.8 g/dL (13.5-17.5); IMMATURE GRANULOCYTES 0.2 % (0-5); MCH 31.4 pg (26.0-34.0); MCHC 35.4 g/dL (31.0-37.0); MEAN PLATELET VOLUME 9.9 fL (7.4-10.4); MONOCYTES 7.5 % (2-11); NEUTROPHILS 61.5 % (40-80); RDW 12.9 % (11.5-14.5)
[2020-05-21 08:49] LABS: MCV 88.6 fL (80.0-100.0); PLATELET COUNT 312 10x3/uL (130-400); WBC 8.5 10x3/uL (4.8-10.8)
[2020-05-21 09:35] VITALS: BP 121/73
--- NOTE | 2020-05-21 12:26 | NUR ---
DURAGESIC 25 REMOVED FROM PT R CHEST PER DR ORDER, DISPOSED OF IN NARCOTIC SHARPS
[2020-05-21 12:31] VITALS: BP 132/76
--- NOTE | 2020-05-21 16:00 | NUR ---
FINISHING UP K RIDERS, THIS AM K 2.8, CONT TO MONITOR, WILL REDRAW AKASH
[2020-05-21 16:17] VITALS: BP 106/51
[2020-05-21 21:23] VITALS: BP 113/46
[2020-05-22 00:56] VITALS: BP 125/86
--- NOTE | 2020-05-22 03:42 | NUR ---
I have reviewed this patient and I concur with the Shift Assessment completed by the Licensed Practical Nurse today this shift.
[2020-05-22 05:08] LABS: BASOPHILS 0.5 % (0-2); EOSINOPHILS 2.6 % (0-7); HEMATOCRIT 41.1 % (42.0-54.0); IMMATURE GRANULOCYTES 0.3 % (0-5); LYMPHOCYTES 35.1 % (15-50); MCH 30.7 pg (26.0-34.0); MCHC 34.1 g/dL (31.0-37.0); MCV 90.1 fL (80.0-100.0); MEAN PLATELET VOLUME 9.1 fL (7.4-10.4); MONOCYTES 9.7 % (2-11); NEUTROPHILS 51.8 % (40-80); RBC 4.56 10x6/uL (4.20-6.10); RDW 12.8 % (11.5-14.5); WBC 6.5 10x3/uL (4.8-10.8)
[2020-05-22 05:22] LABS: PLATELET COUNT 244 10x3/uL (130-400)
[2020-05-22 05:25] LABS: ALBUMIN 3.5 g/dL (3.4-5.0); ALKALINE PHOSPHATASE 56 U/L (30-120); ALT (SGPT) 44 U/L (10-68); BILIRUBIN - TOTAL 0.77 mg/dL (0.2-1.3); CALCIUM 8.6 mg/dL (8.5-10.1); CARBON DIOXIDE 29.2 mmol/L (21.0-32.0); CHLORIDE - SERUM 101 mmol/L (98-107); CREATININE - SERUM 0.8 mg/dL (0.6-1.3); GLUCOSE 76 mg/dL (74-106); POTASSIUM - SERUM 3.7 mmol/L (3.5-5.1); PROTEIN - SERUM 6.1 g/dL (6.4-8.2); SODIUM 136 mmol/L (136-145); eGFR NON AFRICAN AMERICAN > 90 mL/min (90-120)
[2020-05-22 05:34] LABS: CALC OSMOLALITY 267 mosm/kg (275-300); UREA NITROGEN 3 mg/dL (7-18)
[2020-05-22 06:47] VITALS: BP 118/57
--- NOTE | 2020-05-22 07:10 | NUR ---
A&O X4. NO C/O PAIN. NO S/S OF ACUTE DISTRESS NOTED. UP AD ELLIOT. IV TO RIGHT AC, LR INFUSING @ 100ML/HR. SITE PATENT WITHOUT REDNESS OR SWELLING. DENIES ANY NEEDS AT THIS TIME. CALL LIGHT IN REACH. WILL CONTINUE TO MONITOR.
--- NOTE | 2020-05-22 08:02 | NUR ---
SLEEPING ON LEFT SIDE,WITHOUT DISTRESS.
[2020-05-22 08:38] VITALS: BP 119/72
[2020-05-22 14:02] VITALS: BP 133/75
[2020-05-22 15:58] VITALS: Ht 180.3 cm; Wt 72.6 kg
[2020-05-22 17:02] VITALS: BP 134/70
--- NOTE | 2020-05-22 18:59 | NUR ---
A&O RESTING IN BED WITH EYES OPEN. NO C/O PAIN. NO S/S OF ACUTE DISTRESS NOTED. DENIES ANY NEEDS AT THIS TIME. CALL LIGHT IN REACH. WILL CONTINUE TO MONITOR.
[2020-05-22 21:00] VITALS: BP 126/72
--- NOTE | 2020-05-22 23:23 | NUR ---
REC'D. WALKING ROUNDS CHGE OF SHIFT.IN BED WATCHING TV.DENIES NAUSEA AT PRESENT TIME.WILL CONTINUE TO MONITOR FOR ANY CHGES AND FOLLOW CURRENT PLAN OF CARE
[2020-05-23] VITALS (7 sets, daily range): BP systolic 123–144; BP diastolic 51–84
[2020-05-23 05:10] LABS: BASOPHILS 0.5 % (0-2); EOSINOPHILS 3.2 % (0-7); HEMOGLOBIN 14.7 g/dL (13.5-17.5); IMMATURE GRANULOCYTES 0.5 % (0-5); LYMPHOCYTES 32.4 % (15-50); MCH 30.6 pg (26.0-34.0); MCHC 34.2 g/dL (31.0-37.0); MCV 89.4 fL (80.0-100.0); MEAN PLATELET VOLUME 9.8 fL (7.4-10.4); MONOCYTES 7.6 % (2-11); NEUTROPHILS 55.8 % (40-80); PLATELET COUNT 260 10x3/uL (130-400); RBC 4.81 10x6/uL (4.20-6.10); RDW 12.7 % (11.5-14.5); WBC 6.6 10x3/uL (4.8-10.8)
[2020-05-23 05:28] LABS: ALBUMIN 3.9 g/dL (3.4-5.0); ALKALINE PHOSPHATASE 60 U/L (30-120); ALT (SGPT) 45 U/L (10-68); BILIRUBIN - TOTAL 0.89 mg/dL (0.2-1.3); CALC OSMOLALITY 262 mosm/kg (275-300); CALCIUM 8.7 mg/dL (8.5-10.1); CHLORIDE - SERUM 99 mmol/L (98-107); CREATININE - SERUM 0.8 mg/dL (0.6-1.3); GLUCOSE 59 mg/dL (74-106); PHOSPHOROUS 3.6 mg/dL (2.5-4.9); POTASSIUM - SERUM 4.1 mmol/L (3.5-5.1); PROTEIN - SERUM 6.8 g/dL (6.4-8.2); SODIUM 133 mmol/L (136-145); UREA NITROGEN 9 mg/dL (7-18); eGFR NON AFRICAN AMERICAN > 90 mL/min (90-120)
--- NOTE | 2020-05-23 06:55 | NUR ---
A&O RESTING IN BED WITH EYES CLOSED. RESPIRATIONS EVEN AND UNLABORED. NO S/S OF ACUTE DISTRESS NOTED. IV TO LEFT HAND, SL. SITE PATENT WITHOUT REDNESS OR SWELLING. ON ELECTROLYTE PROTOCOL. CALL LIGHT IN REACH. WILL CONTINUE TO MONITOR.
--- NOTE | 2020-05-23 06:57 | NUR ---
I have reviewed this patient and I concur with the Shift Assessment completed by the Licensed Practical Nurse today this shift.
--- NOTE | 2020-05-23 10:43 | NUR ---
I have reviewed this patient and I concur with the Shift Assessment completed by the Licensed Practical Nurse today this shift.
--- NOTE | 2020-05-23 18:43 | NUR ---
CHECKED PATIENT'S BLOOD SUGAR, 83 ACCORDING TO GLUCOMETER READING. GAVE PATIENT JELLO AND APPLE JUICE. ENCOURAGED PATIENT TO SNACK THROUGHOUT THE DAY. DENIES ANYTHING FURTHER. WILL CONTINUE TO MONITOR.
--- NOTE | 2020-05-24 02:50 | NUR ---
I have reviewed this patient and I concur with the Shift Assessment completed by the Licensed Practical Nurse today this shift.
[2020-05-24 05:25] VITALS: BP 119/58
[2020-05-24 06:38] LABS: BASOPHILS 0.3 % (0-2); EOSINOPHILS 3.1 % (0-7); HEMATOCRIT 40.3 % (42.0-54.0); HEMOGLOBIN 13.9 g/dL (13.5-17.5); IMMATURE GRANULOCYTES 0.1 % (0-5); LYMPHOCYTES 27.5 % (15-50); MCHC 34.5 g/dL (31.0-37.0); MEAN PLATELET VOLUME 10.3 fL (7.4-10.4); MONOCYTES 9.4 % (2-11); NEUTROPHILS 59.6 % (40-80); PLATELET COUNT 271 10x3/uL (130-400); RBC 4.48 10x6/uL (4.20-6.10); RDW 12.9 % (11.5-14.5); WBC 6.7 10x3/uL (4.8-10.8)
--- NOTE | 2020-05-24 06:55 | NUR ---
A&O RESTING IN BED WITH EYES OPEN. NO C/O PAIN. NO S/S OF ACUTE DISTRESS NOTED. SCDS ON. IV TO LEFT HAND, SL. SITE PATENT WITHOUT REDNESS OR SWELLING. POTASSIUM 3.4 THIS AM, WILL FOLLOW ELECTROLYTE PROTOCOL. DENIES ANY NEEDS AT THIS TIME. CALL LIGHT IN REACH. WILL CONTINUE TO MONITOR.
[2020-05-24 06:57] LABS: ALBUMIN 3.3 g/dL (3.4-5.0); ALKALINE PHOSPHATASE 64 U/L (30-120); CALCIUM 8.4 mg/dL (8.5-10.1); CARBON DIOXIDE 27.3 mmol/L (21.0-32.0); CHLORIDE - SERUM 106 mmol/L (98-107); CREATININE - SERUM 0.8 mg/dL (0.6-1.3); MAGNESIUM - SERUM 2.1 mg/dL (1.8-2.4); PHOSPHOROUS 3.4 mg/dL (2.5-4.9); PROTEIN - SERUM 5.8 g/dL (6.4-8.2); SODIUM 141 mmol/L (136-145); UREA NITROGEN 7 mg/dL (7-18); eGFR NON AFRICAN AMERICAN > 90 mL/min (90-120)
[2020-05-24 06:59] LABS: ALT (SGPT) 30 U/L (10-68); CALC OSMOLALITY 278 mosm/kg (275-300); GLUCOSE 90 mg/dL (74-106); POTASSIUM - SERUM 3.4 mmol/L (3.5-5.1)
[2020-05-24 08:00] VITALS: BP 112/80
--- NOTE | 2020-05-24 11:25 | NUR ---
I have reviewed this patient and I concur with the Shift Assessment completed by the Licensed Practical Nurse today this shift.
[2020-05-24 12:42] VITALS: BP 119/86
[2020-05-24] MEDS ORDERED: ZOFRAN4 MG PO (12:53)
--- NOTE | 2020-05-24 14:01 | MORECARE ---
CASE MANAGEMENT DISCHARGE SUMMARY PATIENT: EMANUEL JUDD UNIT: [id number] ADM DATE: 05/22/20 AGE: 25 : [birth year] SEX: M ROOM/BED: D.2225 AUTHOR: DIXIE NARAYAN PHYSICIAN: REFERRING PHYSICIAN: ZAIRE CLARK MD DATE OF SERVICE: 05/24/20 Discharge Plan Patient Name: EMANUEL JUDD Facility: [facility]:[place] : 1995 Planned Disposition: Home Anticipated Discharge Date: Discharge Date: Expected LOS: Initial Reviewer: [email or web address] Initial Review Date: 05/20/2020 Generated: 05/24/20 3:00 pm Comments DCP- Discharge Planning Updated by [email or web address]: Idalia Mattson on 05/24/20 1:[address] Patient Name: EMANUEL JUDD Admission Status: ER Accout number: [id number] Admission Date: 05-22-2020 : 1995 Admission Diagnosis:NAUSEA WITH VOMITING, UNSPECIFIED Attending: EDUARDO, Current LOS: 2 Anticipated DC Date: Planned Disposition: Home Primary Insurance: [facility] PPO Discharge Planning Comments: CM met with patient at bedside after explaining CM role and obtaining verbal consent. CM discussed availability / needs of home health, REHAB and medical equipment. PATIENT DENIES ANY DISCHARGE NEEDS. STATES FAMILY MEMBER WILL RURAL CARRIER WHEN DC'D. Wealth Management Advisor: Idalia Mattson DCPIA - Discharge Planning Initial Assessment Updated by [email or web address]: Idalia Mattson on 05/24/20 1:59 pm * Is the patient Alert and Oriented? Yes * PCP FARO * Pharmacy [facility] * Preadmission Environment Home with Family * ADLs Independent * Community resources currently utilized None * Additional services required to return to the preadmission environment? No * Can the patient safely return to the preadmission environment? Yes * Has this patient been hospitalized within the prior 30 days at any hospital? No Patient Name: EMANUEL JUDD Page [phone] at 1401 All edits/amendments must be made on the electronic document DICTATION DATE: 05/24/20 1400 CRIME INVESTIGATOR SPECIAL AGENT: BARBARA 05/24/20 1400 RPT#: [id number] DC DATE: STATUS: ADM IN [facility] [address] [facility] [place] [address] END OF REPORT
--- NOTE | 2020-05-24 14:19 | NUR ---
NUTRITION FOLLOW UP: INTERVIEW: Met with patient. He stated his appetite has been good and has been tolerating the clear liquid diet. He denied recent N/V/D/C and denied any new chewing/swallowing issues. DIET: Clear Liquid SUPPLEMENT: Ensure Clear with Meals PO INTAKE: 100% x 3 meals WEIGHT: 160 lbs on 05/22 BM: x 1 on 05/22 SIG MEDS: Protonix, Lovenox, KCl, D5 in NS @ 75 ml/hr (provide 306 kcal per day) SIG LABS: K-3.4(L), Calcium-8.4(L), Albumin-3.3(L) GOALS: Advance diet as tolerated, BM q 3 days, Stable dry weight, PO intake >= 65% avg for meals RD to continue to follow and monitor patient DHS
--- NOTE | 2020-05-24 14:55 | NUR ---
DISCHARGED PATIENT HOME VIA WHEELCHAIR WITH FAMILY. DISCONTINUED IV, CATHETER TIP INTACT. WENT OVER DISCHARGE INSTRUCTIONS WITH PATIENT, VERBALIZED UNDERSTANDING. DENIES ANYTHING FURTHER.
--- NOTE | 2020-05-25 17:32 | MORECARE ---
CASE MANAGEMENT DISCHARGE SUMMARY PATIENT: EMANUEL JUDD UNIT: [id number] ADM DATE: 05/22/20 AGE: 25 : [birth year] SEX: M ROOM/BED: D.2225 AUTHOR: DIXIE NARAYAN PHYSICIAN: REFERRING PHYSICIAN: ZAIRE CLARK MD DATE OF SERVICE: 05/25/20 Discharge Plan Patient Name: EMANUEL JUDD Facility: [facility]:[place] : 1995 Planned Disposition: Home Anticipated Discharge Date: Discharge Date: 05/24/2020 Expected LOS: Initial Reviewer: [email or web address] Initial Review Date: 05/20/2020 Generated: 05/25/20 6:31 pm Comments DCP- Discharge Planning Updated by [email or web address]: Idalia Mattson on 05/24/20 1:[address] Patient Name: EMANUEL JUDD Admission Status: ER Accout number: [id number] Admission Date: 05-22-2020 : 1995 Admission Diagnosis:NAUSEA WITH VOMITING, UNSPECIFIED Attending: EDUARDO, Current LOS: 2 Anticipated DC Date: Planned Disposition: Home Primary Insurance: [facility] PPO Discharge Planning Comments: CM met with patient at bedside after explaining CM role and obtaining verbal consent. CM discussed availability / needs of home health, REHAB and medical equipment. PATIENT DENIES ANY DISCHARGE NEEDS. STATES FAMILY MEMBER WILL GRANITE POLISHER MACHINE WHEN DC'D. Sales Communications Manager: Idalia Mattson DCPIA - Discharge Planning Initial Assessment Updated by [email or web address]: Idalia Mattson on 05/24/20 1:59 pm * Is the patient Alert and Oriented? Yes * PCP FARO * Pharmacy [facility] * Preadmission Environment Home with Family * ADLs Independent * Community resources currently utilized None * Additional services required to return to the preadmission environment? No * Can the patient safely return to the preadmission environment? Yes * Has this patient been hospitalized within the prior 30 days at any hospital? No Last DP export: 05/24/20 1:00 pm Patient Name: EMANUEL JUDD Page [phone] at 1732 All edits/amendments must be made on the electronic document DICTATION DATE: 05/25/201730 FIELD WORKER: BARBARA 05/25/201730 RPT#: [id number] DC DATE:05/24/20 STATUS: DIS IN [facility] [address] [facility] [place] [address] END OF REPORT
== END 2020-05-24 14:57 | disposition home or self-care (01) | DRG 641 ==
LOC: D.ER 09:10 → D.MS 11:41 → OBSVTIME 11:41 → D.MS 05-22 14:42
PROVIDERS: Family Medicine; ADMIT Family Medicine; ATTEND Family Medicine
DX: E87.6 Hypokalemia (principal); R11.15 Cyclical vomiting syndrome unrelated to migraine; F12.988 Cannabis use, unspecified with other cannabis-induced disorder; K31.84 Gastroparesis; K22.70 Barrett's esophagus without dysplasia; K21.9 Gastro-esophageal reflux disease without esophagitis; E86.0 Dehydration; K76.0 Fatty (change of) liver, not elsewhere classified

== ENCOUNTER 2021-02-27 19:09 | Inpatient (IN) | payer OTHER ==
[~2021-02-27] VITALS: Ht 180.3 cm; Wt 80.3 kg
[2021-02-27 19:43] LABS: BASOPHILS 0.1 % (0-2); EOSINOPHILS 0.1 % (0-7); HEMATOCRIT 48.9 % (42.0-54.0); IMMATURE GRANULOCYTES 0.2 % (0-5); LYMPHOCYTE ABS# 1.54 10x3/uL (1.32-3.57); LYMPHOCYTES 9.2 % (15-50); MCH 31.5 pg (26.0-34.0); MCHC 34.8 g/dL (31.0-37.0); MCV 90.7 fL (80.0-100.0); MEAN PLATELET VOLUME 10.3 fL (7.4-10.4); MONOCYTES 10.6 % (2-11); NEUTROPHIL ABS# 13.31 10x3/uL (1.78-5.38); NEUTROPHILS 79.8 % (40-80); RBC 5.39 10x6/uL (4.20-6.10); RDW 12.7 % (11.5-14.5); WBC 16.7 10x3/uL (4.8-10.8)
[2021-02-27 19:44] LABS: PLATELET COUNT 430 10x3/uL (130-400)
[2021-02-27 19:50] LABS: BILIRUBIN NEGATIVE (NEGATIVE); KETONE MODERATE mg/dL (NEGATIVE); NITRITE NEGATIVE (NEGATIVE); UROBILINOGEN NORMAL mg/dL (< 2)
[2021-02-27 19:56] LABS: ANION GAP 11.6 mmol/L (8-16); CALCIUM 10.2 mg/dL (8.5-10.1); CARBON DIOXIDE 34.8 mmol/L (21.0-32.0); CREATININE - SERUM 1.3 mg/dL (0.6-1.3); POTASSIUM - SERUM 3.4 mmol/L (3.5-5.1)
[2021-02-27 20:02] LABS: ALBUMIN 5.3 g/dL (3.4-5.0); BILIRUBIN - TOTAL 1.09 mg/dL (0.2-1.3); PROTEIN - SERUM 9.3 g/dL (6.4-8.2)
[2021-02-27 20:33] LABS: UDS - AMPHET NEGATIVE QUAL (NEGATIVE); UDS - BARB NEGATIVE QUAL (NEGATIVE); UDS - BENZO NEGATIVE QUAL (NEGATIVE); UDS - COCAINE NEGATIVE QUAL (NEGATIVE); UDS - OPIATE NEGATIVE QUAL (NEGATIVE); UDS - PCP NEGATIVE QUAL (NEGATIVE); UDS - THC POSITIVE QUAL (NEGATIVE)
[2021-02-27 22:49] VITALS: BP 130/83
[2021-02-28 03:19] VITALS: BP 119/62
--- NOTE | 2021-02-28 04:33 | NUR ---
Pt is in bed resting at this time. Did request ice water on intial admit to this unit. Nurse instructed pt to sip on same. Pt drank down all water at once and promptly threw up the same. Pt also utilized urinal and urine is very concentrated and dark. Pain medication administered per order on request for c/o pain and eff for relief. Pt was oriented to unit and pt teaching regarding fluid intake along with IS use.
--- NOTE | 2021-02-28 04:50 | NUR ---
I have reviewed this patient and I concur with the Shift Assessment completed by the Licensed Practical Nurse today this shift.
--- NOTE | 2021-02-28 06:41 | NUR ---
ORDER TO CHANGE DILAUDID TO EVERY 4 HOURS, PRN PAIN
[2021-02-28 06:47] LABS: ALBUMIN 4.1 g/dL (3.4-5.0); ALKALINE PHOSPHATASE 62 U/L (30-120); ALT (SGPT) 103 U/L (10-68); AMYLASE - SERUM 113 U/L (25-115); BILIRUBIN - TOTAL 0.94 mg/dL (0.2-1.3); CALC OSMOLALITY 280 mosm/kg (275-300); CALCIUM 8.6 mg/dL (8.5-10.1); CARBON DIOXIDE 28.4 mmol/L (21.0-32.0); CHLORIDE - SERUM 103 mmol/L (98-107); CKMB 0.1 U/L (0.0-3.6); CREATINE KINASE 179 UL (21-232); CREATININE - SERUM 0.9 mg/dL (0.6-1.3); GLUCOSE 91 mg/dL (74-106); LIPASE 242 U/L (73-393); MAGNESIUM - SERUM 2.6 mg/dL (1.8-2.4); POTASSIUM - SERUM 3.4 mmol/L (3.5-5.1); PROTEIN - SERUM 7.4 g/dL (6.4-8.2); SODIUM 140 mmol/L (136-145); UREA NITROGEN 18 mg/dL (7-18)
[2021-02-28 06:48] LABS: APTT 23.4 SECONDS (22.8-39.4); INR 1.09 (0.85-1.17); TROPONIN-I < 0.017 ng/mL (0.000-0.060); eGFR NON AFRICAN AMERICAN > 90 mL/min (90-120)
[2021-02-28 07:04] LABS: BASOPHILS 0.4 % (0-2); EOSINOPHILS 0.6 % (0-7); HEMATOCRIT 43.5 % (42.0-54.0); HEMOGLOBIN 14.7 g/dL (13.5-17.5); IMMATURE GRANULOCYTES 0.2 % (0-5); LYMPHOCYTE ABS# 1.89 10x3/uL (1.32-3.57); LYMPHOCYTES 17.9 % (15-50); MCHC 33.8 g/dL (31.0-37.0); MCV 91.8 fL (80.0-100.0); MEAN PLATELET VOLUME 11.1 fL (7.4-10.4); MONOCYTES 11.6 % (2-11); NEUTROPHILS 69.3 % (40-80); PLATELET COUNT 366 10x3/uL (130-400); RBC 4.74 10x6/uL (4.20-6.10); RDW 12.8 % (11.5-14.5)
[2021-02-28 07:14] LABS: WBC 10.5 10x3/uL (4.8-10.8)
--- NOTE | 2021-02-28 07:36 | NUR ---
REC'D IN BED AWAKE AND ALERT. RESP EVEN AND UNLABORED WITH NO DISTRESS NOTED. CAN EXPRESS NEEDS AND WANTS. NO C/O NOTED OR VOICED AT THIS TIME. ASSESSMENT COMPLETED. C/L IN REACH AT BEDSIDE.
[2021-02-28 08:44] VITALS: BP 123/78
[2021-02-28 13:47] VITALS: Ht 180.3 cm; Wt 80.3 kg
[2021-02-28 14:00] VITALS: BP 100/55
--- NOTE | 2021-02-28 14:45 | NUR ---
I have reviewed this patient and I concur with the Shift Assessment completed by the Licensed Practical Nurse today this shift.
[2021-02-28 20:00] VITALS: BP 117/57
--- NOTE | 2021-02-28 20:00 | NUR ---
PT LYING IN BED SLEEPING WITHOUT DISTRESS, DENIES NEEDS WHEN WOKEN UP. CL IN REACH
--- NOTE | 2021-02-28 22:15 | NUR ---
PT STATES PAIN TO ABD 10/10, GAVE DILAUDID ORDERED. DENIES OTHER NEEDS. CL IN REACH
[2021-03-01] VITALS: BP 140/76
[2021-03-01 04:00] VITALS: BP 125/64
[2021-03-01 06:04] LABS: BASOPHILS 0.4 % (0-2); EOSINOPHILS 0.7 % (0-7); HEMATOCRIT 43.7 % (42.0-54.0); HEMOGLOBIN 14.7 g/dL (13.5-17.5); IMMATURE GRANULOCYTES 0.1 % (0-5); LYMPHOCYTE ABS# 2.36 10x3/uL (1.32-3.57); LYMPHOCYTES 21.4 % (15-50); MCH 30.9 pg (26.0-34.0); MCHC 33.6 g/dL (31.0-37.0); MCV 91.8 fL (80.0-100.0); MEAN PLATELET VOLUME 10.9 fL (7.4-10.4); MONOCYTES 8.9 % (2-11); NEUTROPHIL ABS# 7.57 10x3/uL (1.78-5.38); NEUTROPHILS 68.5 % (40-80); PLATELET COUNT 367 10x3/uL (130-400); RBC 4.76 10x6/uL (4.20-6.10); RDW 12.7 % (11.5-14.5)
[2021-03-01 06:41] LABS: ALKALINE PHOSPHATASE 61 U/L (30-120); ALT (SGPT) 71 U/L (10-68); AMYLASE - SERUM 55 U/L (25-115); CALC OSMOLALITY 275 mosm/kg (275-300); CALCIUM 9.3 mg/dL (8.5-10.1); CARBON DIOXIDE 29.7 mmol/L (21.0-32.0); CHLORIDE - SERUM 99 mmol/L (98-107); CREATININE - SERUM 0.9 mg/dL (0.6-1.3); GLUCOSE 83 mg/dL (74-106); LIPASE 76 U/L (73-393); MAGNESIUM - SERUM 2.3 mg/dL (1.8-2.4); POTASSIUM - SERUM 3.8 mmol/L (3.5-5.1); PROTEIN - SERUM 6.7 g/dL (6.4-8.2); SODIUM 139 mmol/L (136-145); UREA NITROGEN 9 mg/dL (7-18); eGFR NON AFRICAN AMERICAN > 90 mL/min (90-120)
--- NOTE | 2021-03-01 07:35 | NUR ---
ASLEEP IN BED, EASILY AWAKENED, CL IN REACH, NO NEEDS VOICED, CONTINUE WITH PLAN OF CARE
[2021-03-01 08:11] VITALS: BP 119/70
--- NOTE | 2021-03-01 09:08 | NUR ---
PATIENT ON CL FOR PAIN MEDICATION, UNABLE TO ADMINISTER IT IS STILL AN HOUR EARLY, PATIETN CONTINUES TO DISCONNECT IV FLUIDS AND WALK OR SHOWER. DUCATED ON IMPORTANCE OF FUIDS SINCE PATIENT HAS BEEN N/V. CONTINUE WITH PLAN OF CARE
--- NOTE | 2021-03-01 09:49 | NUR ---
ADMINISTERED PRN PO MEDICATION AND RECONNECTED PATIENT BACK TO IV AND STRESSED IMPORTANCE OF FLUIDS IF PT IS STILL VOMITING. PATIENT VERBALIZED UNDERSTANDING. CONTINUE WITH PLAN OF CARE
--- NOTE | 2021-03-01 10:10 | NUR ---
PATIENT SKED TO BE DISCONNECTED FROM IV TO SHOWER AGAIN, EXPLAINED THAT IF HE IS NAUSEOUS AND STILL VOMITING I WOULD LIKE HIM TO STAY ON FLUIDS A LITTLE LONGER INSTEAD OF GOING BACK AND FORTH AND BEING CONNECTED AND DISCONNECTED FROM IV. BERNA[place] WITH PLAN OF CARE
[2021-03-01 10:12] LABS: HEPATITIS C ANTIBODY <0.1 S/CO RAT (0.0-0.9)
--- NOTE | 2021-03-01 10:52 | NUR ---
I have reviewed this patient and I concur with the Shift Assessment completed by the Licensed Practical Nurse today this shift.
[2021-03-01 12:56] VITALS: BP 121/75
--- NOTE | 2021-03-01 14:35 | NUR ---
PATIENT REQUESTED PAIN MEDICATION AND QUESTIONED WHEN DC WILL BE, ADMINISTERED PRN PAIN MEDICATION, WHEN PATIENT SAW PO MEDICATION HE ASKED IF HE COULD GET SOMETHING ELSE, EXPLAINED IF HE IS DC HE WILL NOT BE GETTING IV AT HOME AND THAT PO IS WHAT WE HAVE. PATIENT VERBALIZED UNDERSTANDING. CONTINUE WITH PLAN OF CARE
--- NOTE | 2021-03-01 17:13 | NUR ---
PATIENT LAYING IN BED WITH FATHER AT BEDSIDE, PATIENT INQUIRED ON STATUS OF DECISION IF BEING DC OR NOT, EXPLAINED I HAVE DC PAPERWORK, PATIENT STARTED THRASHING AROUND ON BED STATING " OHHH MY STOMACH IT HURTS, IT HURTS SO BAD, PATIENT HAS NOT DONE THIS ALL DAY. TOLD HIM I WILL ADMINISTER PRN PAIN MEDICATION BEFORE HE LEFT PATIENT STATED OK
== END 2021-03-01 17:33 | disposition home or self-care (01) | DRG 440 ==
LOC: D.ER 19:09 → OBSVTIME 21:55 → D.MS 21:55
PROVIDERS: Family Medicine; ADMIT Emergency Medicine; ATTEND Emergency Medicine
DX: K85.90 Acute pancreatitis without necrosis or infection, unspecified (principal); K31.84 Gastroparesis; R74.01 Elevation of levels of liver transaminase levels; E87.6 Hypokalemia; F12.90 Cannabis use, unspecified, uncomplicated; K22.70 Barrett's esophagus without dysplasia; K21.9 Gastro-esophageal reflux disease without esophagitis; F41.0 Panic disorder [episodic paroxysmal anxiety]